=== PATIENT | male | born 2000 | race Caucasian/White ===

== ENCOUNTER 2024-07-17 10:16 | Emergency (ER) | payer OTHER ==
[2024-07-17 11:00] VITALS: BP 123/78; PULSE 79; RESP 16; TEMP 97.2; BMI 23.7
== END 2024-07-17 11:36 | disposition home or self-care (01) ==
LOC: JERFT 10:16
DX: J31.0 Chronic rhinitis (principal); R09.81 Nasal congestion
CPT/HCPCS: 99283-25